=== PATIENT | male | born 1985 | race Two or more races ===

== ENCOUNTER 2020-02-04 14:23 | Emergency (ER) | payer OTHER ==
[2020-02-04 14:33] VITALS: BP 138/78
[2020-02-04] MEDS ORDERED: DIPH/PERTUSS(ACELL)/TETANUS VAC/PF 0.5 ML SYR (>=10YO) IM ONE (14:39)
--- NOTE | 2020-02-04 14:40 | ER Document Report ---
HPI - HPI Time Seen by Provider: 02/04/20 14:35 Pain Level: 4 Context: Patient is a 34-year-old male who presents emergency department after stepping on a nail. The nail went through his shoe and into his foot between his third and fourth metatarsals. Patient is able to walk. Patient states the nail was oren. He is unsure as to when his last tetanus vaccine was. - ROS Systems Reviewed and Negative: Yes All other systems reviewed and negative - CONSTITUTIONAL Constitutional: DENIES: Fever, Chills - MUSCULOSKELETAL Musculoskeletal: REPORTS: Extremity pain - rt foot - DERM Skin Color: Normal Past Medical History - General Information source: Patient - Social History Smoking Status: Current Some Day Smoker Chew tobacco use (# tins/day): No Frequency of alcohol use: Social Drug Abuse: None Family History: Reviewed & Not Pertinent Patient has suicidal ideation: No Patient has homicidal ideation: No Vertical Provider Document - CONSTITUTIONAL Agree With Documented VS: Yes Exam Limitations: No Limitations General Appearance: No Apparent Distress - INFECTION CONTROL TRAVEL OUTSIDE OF THE [place] IN LAST 30 DAYS: No - HEENT HEENT: Atraumatic, Normocephalic, PERRLA - NECK Neck: Normal Inspection - RESPIRATORY Respiratory: No Respiratory Distress - CARDIOVASCULAR Cardiovascular: Regular Rhythm Pulses: Normal: Posterior tibial, Dorsalis pedis - MUSCULOSKELETAL/EXTREMETIES Musculoskeletal/Extremeties: FROM, Tender - plantar foot between 3rd and 4th metatarsals - NEURO Level of Consciousness: Awake, Alert, Appropriate - DERM Notes: puncture wound to right dorsal foot. Course - Re-evaluation Re-evalutation: 02/04/20 15:46 Patient's x-ray is negative for any acute fracture or foreign body. Patient received his tetanus vaccine here in the emergency department. He will be started on Keflex to prevent infection. Capillary refill less than 3 seconds. Dorsalis pedis and posterior tibial pulses 2+. No vascular compromise noted. He is in agreement with this plan. I offered the patient crutches, but he politely declined. Follow-up precautions were given. Verbal discharge instructions were given to the patient. They verbalized understanding. They are stable for discharge. - Vital Signs Vital signs: Temp Pulse Resp BP Pulse Ox 97.8 F 96 20 138/78 H 98 02/04/20 14:28 02/04/20 14:28 02/04/20 14:28 02/04/20 14:28 02/04/20 14:28 Discharge - Discharge Clinical Impression: Puncture wound Condition: Stable Disposition: HOME, SELF-CARE Instructions: Tetanus Immunization Given ([facility]) Additional Instructions: You are seen today in the emergency department for a puncture wound to your right foot. Please take your antibiotics as prescribed. Follow-up with your primary care provider. Prescriptions: Cephalexin Monohydrate [Keflex 500 mg Capsule] 500 mg PO Q6H 5 Days #20 capsule Forms: Return to Work
--- NOTE | 2020-02-04 15:33 | RADIOLOGY REPORT (SQ) ---
EXAM DESCRIPTION: FOOT RIGHT COMPLETE IMAGES COMPLETED DATE/TIME: 02/04/2020 3:09 pm REASON FOR STUDY: stepped on nail COMPARISON: None. NUMBER OF VIEWS: Three views. TECHNIQUE: AP, lateral and oblique radiographic images acquired of the right foot. LIMITATIONS: None. FINDINGS: MINERALIZATION: Normal. BONES: No acute fracture or dislocation. No worrisome bone lesions. JOINTS: No effusions. SOFT TISSUES: Swelling plantar aspect forefoot. No foreign body. OTHER: No other significant finding. IMPRESSION: No foreign body or fracture. TECHNICAL DOCUMENTATION: JOB ID: [id number] [address] All Rights Reserved Reading location - IP/workstation name: [email or web address]
== END 2020-02-04 15:57 | disposition home or self-care (01) ==
LOC: ER 14:23
DX: S91.331A Puncture wound without foreign body, right foot, initial encounter (principal); W45.0XXA Nail entering through skin, initial encounter; F17.200 Nicotine dependence, unspecified, uncomplicated; Z23 Encounter for immunization
CPT/HCPCS: 90471; 90715; 99283

== ENCOUNTER 2020-10-20 18:01 | Emergency (ER) | payer OTHER ==
[2020-10-20 18:10] VITALS: BP 153/86
--- NOTE | 2020-10-20 18:32 | ER Document Report ---
ED General - General Chief Complaint: Cough Stated Complaint: COUGH Time Seen by Provider: 10/20/20 18:28 Primary Care Provider: [facility] [Provider Group] - Follow up as needed TRAVEL OUTSIDE OF THE [place] IN LAST 30 DAYS: No - HPI Notes: Patient is a 34-year-old male with no medical history who presents for COVID testing. 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 He reports cough and congestion but denies fever, shortness of breath, chest pain, and abdominal pain. Patient is a current everyday smoker. - Related Data Allergies/Adverse Reactions: No Known Allergies Allergy (Unverified 02/04/20 14:33) Past Medical History - General Information source: Patient - Social History Smoking Status: Current Every Day Smoker Chew tobacco use (# tins/day): No Frequency of alcohol use: None Drug Abuse: None Family History: Reviewed & Not Pertinent Review of Systems - Review of Systems Constitutional: No symptoms reported EENT: See HPI Cardiovascular: No symptoms reported Respiratory: See HPI Gastrointestinal: No symptoms reported Genitourinary: No symptoms reported Male Genitourinary: No symptoms reported Musculoskeletal: No symptoms reported Skin: No symptoms reported Hematologic/Lymphatic: No symptoms reported Neurological/Psychological: No symptoms reported Physical Exam - Vital signs Vitals: Temp Pulse Resp BP Pulse Ox 98.0 F 83 20 153/86 H 98 10/20/20 18:09 10/20/20 18:09 10/20/20 18:09 10/20/20 18:09 10/20/20 18:09 - Notes Notes: PHYSICAL EXAMINATION: VITALS: Vitals reviewed and within normal limits. GENERAL: Well-appearing, well-nourished and in no acute distress. HEAD: Atraumatic, normocephalic. LUNGS: Breath sounds clear to auscultation bilaterally and equal. No wheezes rales or rhonchi. HEART: Regular rate and rhythm without murmurs. ABDOMEN: Soft, nontender, normoactive bowel sounds. No guarding, no rebound. No masses appreciated. PSYCH: Normal mood, normal affect. SKIN: Warm, Dry, normal turgor, no rashes or lesions noted. Course - Re-evaluation Re-evalutation: Patient is a 34-year-old male with no medical history who presents for COVID-19 testing due to an exposure. Patient reports nasal congestion and cough but declined a chest x-ray when offered. He states he would only like to have COVID-19 testing done. Vital signs are within normal limits. On exam, lungs are clear to auscultation bilaterally and his heart has a regular rate and rhythm. COVID-19 swab done here in the ED. Patient instructed that the test typically results in 2 to 3 days and he will be notified by phone with his results. Patient advised to quarantine until he is aware of his results. Return precautions and follow-up instructions given. Patient understands and is in agreement with the plan. Patient will be discharged home. - Vital Signs Vital signs: Temp Pulse Resp BP Pulse Ox 98.0 F 83 20 153/86 H 98 10/20/20 18:09 10/20/20 18:09 10/20/20 18:09 10/20/20 18:09 10/20/20 18:09 - Laboratory Results Critical Laboratory Results Reviewed: No Critical Results - Radiology Results Critical Radiology Results Reviewed: No Critical Results Discharge - Discharge Clinical Impression: Exposure to COVID-19 virus Condition: Stable Disposition: HOME, SELF-CARE Instructions: COVID-19 Guidance for Persons Under Investigation Referrals: [facility] [Provider Group] - Follow up as needed
== END 2020-10-20 19:30 | disposition home or self-care (01) ==
LOC: ER 18:01
DX: R05 Cough (principal); F17.200 Nicotine dependence, unspecified, uncomplicated; Z20.828 Contact with and (suspected) exposure to other viral communicable diseases
CPT/HCPCS: 99282; 87635; C9803